=== PATIENT | female | born 1975 | race Caucasian/White ===

== ENCOUNTER 2022-02-23 04:28 | Emergency (ER) | payer OTHER ==
[~2022-02-23] VITALS: Ht 157.5 cm; Wt 77.3 kg
[2022-02-23 04:29] VITALS: BP 118/66
[2022-02-23] MEDS ORDERED: AMOX500C2 PO (05:15)
== END 2022-02-23 05:26 | disposition home or self-care (01) ==
LOC: EMS 04:34
DX: H66.91 Otitis media, unspecified, right ear (principal)
CPT/HCPCS: 99283; Z7502

== ENCOUNTER 2022-04-16 20:24 | Emergency (ER) | payer OTHER ==
[~2022-04-16] VITALS: Ht 157.5 cm; Wt 77.0 kg
[~2022-04-16 20:24] MED LIST: AMOX500C2 PO
[2022-04-16 20:56] VITALS: BP 123/70
[2022-04-16 21:58] LABS: HEMATOCRIT 35.5 % (36-46); HEMOGLOBIN 11.8 g/dL (12.0-16.0); MEAN CORPUSCULAR HGB CONC 33.2 G/dL (31.0-37.0); MEAN CORPUSCULAR VOLUME 90 fL (80-100); PLATELET COUNT (AUTO) 220 K/uL (150-450); RED BLOOD CELL COUNT(AUTO) 3.93 MIL/uL (4.00-5.20)
[2022-04-16 22:01] LABS: BASOPHILS % (AUTO) 0.8 % (0.0-2.0); EOSINOPHILS % (AUTO) 1.3 % (1.0-6.0); LYMPHOCYTES # (AUTO) 1.3 K/uL (1.0-4.8); LYMPHOCYTES % (AUTO) 27.1 % (22.0-44.0); MONOCYTES # (AUTO) 0.4 K/uL (0.1-1.0); MONOCYTES % (AUTO) 8.1 % (2.0-9.0); NEUTROPHILS % (AUTO) 62.7 % (40.0-70.0); RED CELL DISTRIBUTION WIDTH 13.5 % (11.5-14.5)
[2022-04-16 22:09] LABS: PROTHROMBIN TIME 10.7 SEC (9.4-11.6)
[2022-04-16 22:10] LABS: ANION GAP 6 mmol/L (8-16); CALCIUM, TOTAL 8.5 mg/dL (8.8-10.5); CARBON DIOXIDE 28 mmol/L (22-29); CHLORIDE 104 mmol/L (98-107); CREATININE 0.79 mg/dL (0.60-1.30); GLUCOSE,RANDOM 90 mg/dL (70-110); POTASSIUM 3.5 mmol/L (3.5-5.1); SODIUM SERUM 138 mmol/L (136-145); UREA NITROGEN, BLOOD 13 mg/dL (7-18)
[2022-04-16 22:11] LABS: GLOMERULAR FILTR. RATE CALC > 60 mL/min (>60)
[2022-04-16 22:16] LABS: ALANINE AMINOTRANSFERASE 17 U/L (12-78); ALBUMIN 3.4 g/dL (3.4-5.0); ALKALINE PHOSPHATASE 74 U/L (46-116); ASPARTATE AMINOTRANSFERASE 17 U/L (15-37); BILIRUBIN,TOTAL 0.2 mg/dL (0.1-1.0); TOTAL PROTEIN, SERUM 7.2 g/dL (6.4-8.2)
[2022-04-16 22:21] LABS: B-TYPE NATRIURETIC PEPTIDE 18 pg/mL (0-100)
[2022-04-16] MEDS ORDERED: KETOROLAC TROMETHAMINE 30 MG/ML VIAL IM ONE (23:00)
[2022-04-16] MEDS ORDERED: CYCL-448 PO (23:15)
== END 2022-04-16 23:53 | disposition home or self-care (01) ==
LOC: EMS 21:35
DX: R07.89 Other chest pain (principal); M54.9 Dorsalgia, unspecified; Z98.890 Other specified postprocedural states
CPT/HCPCS: 71045; 80053; 83880; 84484; 85025; 85610; 85730; 93005; 99285; 36415-L1; 36415-TC